=== PATIENT | male | born 1970 | race Hispanic/Latino ===

== ENCOUNTER 2020-05-27 18:36 | Inpatient (IN) | payer OTHER, SELFPAY ==
[~2020-05-27 18:36] MED LIST: Iopamidol-370 76% 500 ML 1 ML ONE
[2020-05-27] MEDS ORDERED: Ondansetron PF 4 MG/2 ML Vial ONE ×2 (18:52→22:35)
[2020-05-27] MEDS ORDERED: Morphine 4 MG/ML VIAL ONE (19:10)
[2020-05-27 19:26] LABS: INR-International Normal Ratio 0.9; PTT 34.2 sec (22.9-36.1); Prothrombin Time 12.8 sec (12.0-14.7)
[2020-05-27] MEDS ORDERED: Cefepime 2 GM VIAL ONE (19:44)
[2020-05-27 19:45] LABS: Hemoglobin 14.8 g/dL (14.0-18.0); Mean Corpuscular HGB CONC 36.8 g/dL (32.0-36.0); Mean Corpuscular Hemoglobin 29.5 pg (27.0-31.0); Mean Corpuscular Volume 80.1 fL (78.0-98.0); Mean Platelet Volume 8.2 fL (7.4-10.4); Platelet Count 217 thou/uL (130-400); White Blood Cell (WBC) Count 14.1 thou/uL (4.8-10.8)
[2020-05-27 19:48] LABS: #Basophils 0.1 thou/uL (0.0-0.2); #Eosinphils 0.1 thou/uL (0.0-0.7); #Lymphocytes 1.5 thou/uL (1.20-3.40); #Monocytes 0.7 thou/uL (0.11-0.59); #Neutrophils 11.6 thou/uL (1.40-6.50); %Basophils 0.4 % (0.0-1.0); %Eosinophils 0.9 % (0.0-10.0); %Lymphocytes 10.8 % (21.0-51.0); %Monocytes 5.3 % (0.0-10.0); %Neutrophils 82.7 % (42.0-75.0); Band 27 % (5-11); Lymphocytes 9 % (21-51); MDiff Complete? YES; Monocytes 4 % (0-10); Neutrophil 56 % (42-75); Platelet Morphology Comment Appears Adequate; Polychromasia SLIGHT = 2-3 cells (100X) (0-2/hpf); Reactive Lymphocytes 4 % (0-10)
[2020-05-27] MEDS ORDERED: Acetaminophen 500 MG TAB ONE (19:53)
[2020-05-27] MEDS ORDERED: Vancomycin 1 GM/200 ML BAG ONE (20:16)
--- NOTE | 2020-05-27 20:47 | CT ---
CT ABDOMEN AND PELVIS WITH IV CONTRAST; 05/27/20 HISTORY: Pain in the abdomen and right and left to the back. FINDINGS: There are minimal dependent changes in the lung bases. The gallbladder is distended. No calcified gal lstones are seen. There is fatty infiltration of the liver. The spleen, adrenal glands, and kidneys a re normal. There is mild peripancreatic inflammation adjacent to the head of the pancreas. The pancr eas shows normal enhancement. No free air, free fluid or lymphadenopathy is seen in the abdomen or pelvis. The small bowel loops ar e not abnormally dilated. There are postop changes of appendectomy. There is a fat containing right p araumbilical hernia and small bilateral fat containing inguinal hernia. There are degenerative change s in the spine. No aneurysmal dilatation of the abdominal aorta is seen. IMPRESSION: 1. Fatty liver. 2. Distended gallbladder. Gallbladder ultrasound would be helpful. 3. Findings are suspicious for pancreatitis. POS: OFF
[2020-05-27 21:09] LABS: Chloride 98 mmol/L (98-107); Sodium 139 mmol/L (136-145)
[2020-05-27 21:12] LABS: Carbon Dioxide 24 mmol/L (22-29)
[2020-05-27 21:13] LABS: Anion Gap 21 mmol/L (10-20); BUN (Urea Nitrogen) 18 mg/dL (8.9-20.6); Calc. Creatinine Clearance 0 mL/min (70-130)
[2020-05-27 21:14] LABS: AST (SGOT) 24 U/L (5-34); Albumin 4.4 g/dL (3.5-5.0); Alkaline Phosphatase 82 U/L (40-110); Bilirubin, Total 0.6 mg/dL (0.2-1.2); CK (CPK) 163 U/L (30-200); Calcium 8.4 mg/dL (7.8-10.44); Globulin 2.7 g/dL (2.4-3.5); Glucose 224 mg/dL (70-105); Protein, Total 7.1 g/dL (6.0-8.3)
[2020-05-27 21:15] LABS: ALT (SGPT) 29 U/L (8-55); Lipase 127 U/L (8-78)
--- NOTE | 2020-05-27 21:43 | ULT ---
GALLBLADDER ULTRASOUND: 05/27/20 HISTORY: Abdominal pain. FINDINGS: The liver demonstrates increased echogenicity consistent with fatty infiltration without focal mass o r abnormal biliary ductal dilatation. No gallstones, gallbladder wall thickening or pericholecystic f luid is seen. the common duct measures 5 mm in diameter. The pancreas is not well visualized due to o verlying bowel gas. Right kidney is normal. No free fluid is seen in Julian's pouch. IMPRESSION: 1. Fatty liver. 2. No evidence of cholelithiasis. 3. The drier unloader reported a positive sonographic [place]'s sign. If there is suspicion for acut e cholecystitis, HIDA scan should be performed. POS: OFF
[2020-05-27 22:06] LABS: Bacteria/HPF None Seen HPF (None Seen); Bilirubin Negative (Negative); Blood, Urine 1+ (Negative); Clarity Clear (Clear); Glucose, Urine (Dipstick) Greater than 1000 mg/dL (Negative); Ketone, Urine 10 mg/dL (Negative); Leukocyte Negative Leu/uL (Negative); Nitrite Negative (Negative); Protein, Urine (Dipstick) 20 mg/dL (Neg-Trace); Specific Gravity, Urine 1.048 (1.002-1.036); Squamous Epithelial 0-3 HPF (0-3); Urobilinogen Normal mg/dL (Less than 2); WBC/HPF 0-3 HPF (0-3); pH, Urine 6.5 (5.0-9.0)
[2020-05-27] MEDS ORDERED: Acetaminophen 650 MG Suppository PR PRN (23:16)
--- NOTE | 2020-05-27 23:34 | PDOC.HHP ---
Hospitalist HPI - History of Present Illness History of Present Illness: ADMISSION DATE: 05/27/2020 TIME OF ASSESSMENT: 2300 PRIMARY CARE PHYSICIAN: None CHIEF COMPLAINT: Abdominal pain HPI: This is a 49-year-old gentleman who is [place]-speaking only presenting to the emergency department with complaints of severe abdominal pain. He states yesterday evening he noted abdominal bloating but did not experience pain until after eating breakfast earlier today. At approximately noon it became severe, 10 out of 10 in severity which she describes as a diffuse pressure-like sensation. It remains intermittent throughout the day and eventually prompted him to come in and seek medical evaluation. He vomited twice, once at home and once since arriving to the ER. Denies any hematemesis and has not had any diarrhea or constipation. He was not febrile at home but noted to have an elevated temperature here in the ER. He had a normal bowel movement earlier today. ED COURSE: He had an EKG done in the emergency department that showed sinus tachycardia with a heart rate of 116. No ST changes or T wave abnormalities present. Labs showed white cell count 14.1, hemoglobin 14.8, hematocrit 40.2, platelets 217, neutrophils 82.7%, bands 27. Actiq acid 1.6, sodium 139, potassium 4, BUN 18, creatinine 0.98, GFR 81. LFTs normal and lipase 127. CK 163, troponin negative. UA showed greater than 1000 glucose, 10 ketones, 1+ blood, 11-[address] abdomen and pelvis: 1. Fatty liver. 2. Distended gallbladder. Gallbladder ultrasound would be helpful. 3. Findings are suspicious for pancreatitis. Gallbladder ultrasound: 1. Fatty liver. 2. No evidence of cholelithiasis. 3. The it network architect reported a positive sonographic [place] sign. If there is suspicion for acut e cholecystitis, HIDA scan should be performed. Patient received Zofran 4 mg x 2 for nausea/vomiting. Received 2 L of normal saline and started on antibiotics with vancomycin and cefepime. Given Tylenol 1 g for fever. PAST MEDICAL HISTORY: None PAST SURGICAL HISTORY: 1. Appendectomy 2. Foot surgery SOCIAL HISTORY: He lives with his and denies any history of tobacco use, alcohol consumption or drug use. Fully independent at baseline. FAMILY HISTORY: Noncontributory ALLERGIES: No known drug allergies CURRENT MEDICATIONS: None. - Exam General Appearance: NAD, awake alert General - other findings: VS: Temp 100.5, HR 109, BP 146/80, RR 22, O2 sat 92% on room air. Pain 4/ Eye: PERRL, anicteric sclera ENT: normocephalic atraumatic, moist mucosa Neck: supple, no lymphadenopathy Heart: RRR, normal peripheral pulses Respiratory: CTAB, no wheezes, no rales, no ronchi, normal chest expansion Gastrointestinal: soft, tender to palpation (diffuse) Extremities: no edema Skin: normal turgor, no lesions Neurological: cranial nerve grossly intact, normal sensation to touch, no weakness Musculoskeletal: normal tone, normal strength, no muscle wasting Psychiatric: normal affect, normal behavior, A&O x 3 Hospitalist Results - Labs Result Diagrams: 05/27/20 18:49 05/27/20 18:49 Lab results: WBC 14.1 thou/uL (4.8-10.8) H 05/27/20 18:49 Hgb 14.8 g/dL (14.0-18.0) 05/27/20 18:49 Hct 40.2 % (42.0-52.0) L 05/27/20 18:49 MCV 80.1 fL (78.0-98.0) 05/27/20 18:49 Plt Count 217 thou/uL (130-400) 05/27/20 18:49 Neutrophils % 82.7 % (42.0-75.0) H 05/27/20 18:49 Band Neuts % (Manual) 27 % (5-11) H 05/27/20 18:49 Sodium 139 mmol/L (136-145) 05/27/20 18:49 Potassium 4.0 mmol/L (3.5-5.1) 05/27/20 18:49 Chloride 98 mmol/L (98-107) 05/27/20 18:49 Carbon Dioxide 24 mmol/L (22-29) 05/27/20 18:49 BUN 18 mg/dL (8.9-20.6) 05/27/20 18:49 Creatinine 0.98 mg/dL (0.7-1.3) 05/27/20 18:49 Glucose 224 mg/dL (70-105) H 05/27/20 18:49 Lactic Acid 1.6 mmol/L (0.5-2.2) 05/27/20 18:49 Calcium 8.4 mg/dL (7.8-10.44) 05/27/20 18:49 Total Bilirubin 0.6 mg/dL (0.2-1.2) 05/27/20 18:49 AST 24 U/L (5-34) 05/27/20 18:49 ALT 29 U/L (8-55) 05/27/20 18:49 Alkaline Phosphatase 82 U/L (40-110) 05/27/20 18:49 Creatine Kinase 163 U/L (30-200) 05/27/20 18:49 Troponin I Less than 0.010 ng/mL (< 0.028) 05/27/20 18:49 Serum Total Protein 7.1 g/dL (6.0-8.3) 05/27/20 18:49 Albumin 4.4 g/dL (3.5-5.0) 05/27/20 18:49 Lipase 127 U/L (8-78) H 05/27/20 18:49 Urine Ketones 10 mg/dL (Negative) A 05/27/20 21:57 Urine Blood 1+ (Negative) A 05/27/20 21:57 Urine Nitrite Negative (Negative) 05/27/20 21:57 Ur Leukocyte Esterase Negative Beth/uL (Negative) 05/27/20 21:57 Urine RBC 11-20 HPF (0-3) A 05/27/20 21:57 Urine WBC 0-3 HPF (0-3) 05/27/20 21:57 Ur Squamous Epith Cells 0-3 HPF (0-3) 05/27/20 21:57 Urine Bacteria None Seen HPF (None Seen) 05/27/20 21:57 - Radiology Interpretation CT scan - abdomen Status: report reviewed by al Hospitalist H&P A/P - Problem (1) Sepsis Code(s): A41.9 - SEPSIS, UNSPECIFIED ORGANISM Status: Acute (2) Abdominal pain Code(s): R10.9 - UNSPECIFIED ABDOMINAL PAIN Status: Acute (3) Nausea & vomiting Code(s): R11.2 - NAUSEA WITH VOMITING, UNSPECIFIED Status: Acute - Plan Plan: Patient presenting with n/v and diffuse abdominal pain, worse in upper abdomen. Per ED, concern for pancreatitis, however lipase is 127. He is febrile and tachycardic with bandemia. Imaging showed ?pancreatitis on CT, while GB US showed gallbladder distention with poor visualization of pancreas. Will continue IV antibiotics Repeat LFTs in the AM including lipase Blood cultures done IV fluids Check lipid panel with AM labs NPO GI consult
[2020-05-28] MEDS ORDERED: Sodium Chloride 0.9% 1,000 ML IV SCH ×2 (00:30→08:15)
[2020-05-28] MEDS: Sodium Chloride 0.9% 1,000 ML IV SCH ×2 (00:30→11:29)
[2020-05-28] MEDS ORDERED: Vancomycin 1.5 GRAM/300 ML BAG 1.5 GM in Premix Bag 1 BAG IVPB SCH (02:00)
[2020-05-28] MEDS: Acetaminophen 325 MG TAB PO PRN ×3 (04:39→22:56)
[2020-05-28] MEDS ORDERED: Ibuprofen 200 MG TAB PO SCH (06:15)
[2020-05-28 06:21] LABS: SARS-CoV-2 PCR by NAA Not Detected (NotDetected)
[2020-05-28] MEDS ORDERED: Ondansetron ODT 4 MG TAB PO PRN (06:24)
[2020-05-28] MEDS ORDERED: Ondansetron PF 4 MG/2 ML Vial IVP SCH (06:30)
[2020-05-28 06:57] LABS: #Lymphocytes 0.7 thou/uL (1.20-3.40); %Basophils 0.1 % (0.0-1.0); %Eosinophils 0.3 % (0.0-10.0); %Monocytes 5.7 % (0.0-10.0); Hemoglobin 14.2 g/dL (14.0-18.0); Mean Corpuscular HGB CONC 36.1 g/dL (32.0-36.0); Mean Corpuscular Volume 80.4 fL (78.0-98.0); Mean Platelet Volume 8.1 fL (7.4-10.4); Platelet Count 188 thou/uL (130-400); RBC Distribution Width 13.4 % (11.5-14.5); Red Blood Cell (RBC) Count 4.88 mill/uL (4.70-6.10); White Blood Cell (WBC) Count 17.8 thou/uL (4.8-10.8)
[2020-05-28 07:06] LABS: Lactic Acid 1.4 mmol/L (0.5-2.2)
[2020-05-28 07:08] LABS: ALT (SGPT) 22 U/L (8-55); Albumin 3.8 g/dL (3.5-5.0); Alkaline Phosphatase 73 U/L (40-110); Anion Gap 24 mmol/L (10-20); BUN (Urea Nitrogen) 11 mg/dL (8.9-20.6); Bilirubin, Total 0.8 mg/dL (0.2-1.2); Calc. Creatinine Clearance 142 mL/min (70-130); Calcium 8.4 mg/dL (7.8-10.44); Carbon Dioxide 13 mmol/L (22-29); Cardiac Risk 51.8 (Less than 4.5); Chloride 95 mmol/L (98-107); Cholesterol 622 mg/dl (< 200 Desired); Globulin 5.4 g/dL (2.4-3.5); Glucose 251 mg/dL (70-105); HDL Cholesterol 12 mg/dL (>60 Neg Risk); Lipase 83 U/L (8-78); Magnesium 1.6 mg/dL (1.6-2.6); Potassium 3.3 mmol/L (3.5-5.1); Protein, Total 9.2 g/dL (6.0-8.3); Sodium 129 mmol/L (136-145)
[2020-05-28 07:16] LABS: Triglycerides 3432 mg/dL (Less than 150)
[2020-05-28 07:37] LABS: AST (SGOT) 22 U/L (5-34)
[2020-05-28] MEDS ORDERED: Cefepime 1 GM in Sodium Chloride 0.9% 100 ML IVPB SCH (08:00)
[2020-05-28] MEDS ORDERED: Dextrose 50% Abboject 50 ML SYRINGE SLOW IVP PRN ×2 (08:02→08:39)
[2020-05-28] MEDS ORDERED: Insulin Regular 300 UNITS/3 ML VIAL SC PRN (08:02)
[2020-05-28] MEDS ORDERED: Dextrose 5% in Water 1,000 ML IV PRN ×2 (08:02→08:39)
[2020-05-28] MEDS ORDERED: D5 1/2 NS w/20 mEq KCL 1,000 ML IV PRN (08:06)
[2020-05-28] MEDS ORDERED: NS 0.9% w/ 20 MEQ KCL 1,000 ML IV PRN ×2 (08:06)
[2020-05-28] MEDS ORDERED: Dextrose 5 %-0.45 % NaCl 1,000 ML IV PRN (08:06)
[2020-05-28] MEDS ORDERED: Sodium Chloride 0.9% 1,000 ML IV PRN ×4 (08:06)
--- NOTE | 2020-05-28 08:07 | RAD ---
XR Chest Pa Lat STANDARD History: Shortness of breath. Fever Comparison: Radiograph 2017 Findings: Mild perihilar and peripheral airspace opacities. No pneumothorax. No effusion. No acute os seous abnormality. Impression: Low-grade perihilar and peripheral opacities can be seen with Covid-19 pneumonia.
[2020-05-28] MEDS ORDERED: HUMULIN R 100 UNITS in Sodium Chloride 0.9% 100 ML IVPB SCH (08:15)
[2020-05-28] MEDS ORDERED: D5 0.9% NS w/ 20 mEq KCl 1,000 ML IV SCH (08:15)
[2020-05-28] MEDS ORDERED: MEROPENEM 1 GM/50 ML 1 GM in Premix Bag 1 BAG IVPB SCH (08:30)
[2020-05-28 08:46] LABS: Hemoglobin A1c 7.9 % (4.0-6.0)
[2020-05-28] MEDS ORDERED: Famotidine/PF 20 mg/2ml Vial SLOW IVP SCH (09:00)
[2020-05-28 09:02] LABS: Anion Gap 25 mmol/L (10-20); BUN (Urea Nitrogen) 10 mg/dL (8.9-20.6); Calc. Creatinine Clearance 122 mL/min (70-130); Carbon Dioxide 13 mmol/L (22-29); Chloride 97 mmol/L (98-107); Glucose 236 mg/dL (70-105); Potassium 4.2 mmol/L (3.5-5.1); Sodium 131 mmol/L (136-145)
[2020-05-28 09:14] LABS: Phosphorus 2.5 mg/dL (2.3-4.7)
[2020-05-28] MEDS: D5 1/2 NS w/20 mEq KCL 1,000 ML IV SCH ×2 (10:14→12:32)
[2020-05-28] MEDS: NPH, Human Insulin Isophane 300 UNIT/3 ML VIAL SC SCH ×2 (10:14→21:26)
[2020-05-28] MEDS: Pantoprazole 40 MG VIAL IVP SCH ×2 (10:39→21:01)
[2020-05-28 13:18] LABS: Anion Gap 19 mmol/L (10-20); BUN (Urea Nitrogen) 10 mg/dL (8.9-20.6); Calc. Creatinine Clearance 131 mL/min (70-130); Calcium 7.3 mg/dL (7.8-10.44); Carbon Dioxide 18 mmol/L (22-29); Chloride 99 mmol/L (98-107); Glucose 249 mg/dL (70-105); Lactic Acid 1.4 mmol/L (0.5-2.2); Potassium 5.4 mmol/L (3.5-5.1); Sodium 131 mmol/L (136-145)
--- NOTE | 2020-05-28 16:17 | CON ---
DATE OF CONSULTATION: 05/28/2020 REASON FOR CONSULTATION: Abdominal pain and fever. HISTORY OF PRESENT ILLNESS: A 49-year-old patient first admission, who has a history of hypertension, otherwise in usual health until Friday when he developed abdominal pain in the bandlike fashion in the epigastric, right and left upper quadrant, some nausea, and started having fever, body aches, and chills. No headaches. No sore throat, odynophagia, or dysphagia. No respiratory symptoms. No genitourinary symptoms. No diarrhea or constipation or bleeding. No joint symptoms. On arrival, his blood pressure was 140/90, is tachycardic 106, temperature 101.5, O2 saturation 98% on room air. He is tachypneic, appeared in some distress, moderate pain in the epigastric area. There is tenderness in the abdominal area in the epigastric region, left upper quadrant, right upper quadrant. Initial findings included also white cell count 14,000, hemoglobin 14, platelets 217, 82% neutrophils. Sodium 139, creatinine 0.98. Liver profile normal. Albumin 4.4. Lipase was 127. Urinalysis was 0 to 3 wbc's. SARS-CoV-2 PCR negative. Abdomen and pelvis CT with fatty liver, distended gallbladder, and possible pancreatitis with mild peripancreatic inflammatory changes adjacent to the head of the pancreas. The patient had a chest x-ray, which showed some low-grade perihilar opacities. Currently, Mr. Gonzalez is feeling a little better. He is still having pain in the upper segments of his abdomen, dry mouth. The pain cannot radiate to the left lower quadrant at this time. Remainder of 10-point review of systems is negative. PAST MEDICAL HISTORY: Hypertension and GERD. SOCIAL HISTORY: . Lives in [place]. 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 Never smoker. Does not drink. SURGICAL HISTORY: Appendectomy. ALLERGIES: NONE. MEDICATIONS: Had not been taking any medication. Right now he is on: 1. Dextrose insulin. 2. Pantoprazole. PHYSICAL EXAMINATION: VITAL SIGNS: Temperature 102.5, he is now 98.9; blood pressure 130/80; heart rate 96; respiratory rate 18; O2 saturation 96% on 1 L. SKIN: Normal. Peripheral IV access. GENERAL: He is voiding in the toilet. LYMPHATIC: No lymphadenopathy. HEENT: Ocular movements conjugate. Oral cavity dry. Quite a few teeth in place with some decay and gum disease. NECK: Supple. No jugular vein distention. LUNGS: Symmetric clear breath sounds. HEART: S1 and S2. Regular rate. No S3 or S4. ABDOMEN: Soft with [id number] tenderness in the epigastric area, right and left upper quadrants. No distention. No organomegaly or bladder distention. No ascites. EXTREMITIES: No joint inflammatory activity. No edema. Pulses 1+ in dorsalis pedis. Plantar responses are flexor. NEUROLOGIC: Moves extremities equally. Cognitive function appears to be intact. LABORATORY DATA: White cell count 17.8, hemoglobin 14, platelets 188, 90% neutrophils. Creatinine 0.97. Lactic acid 1.4. Two blood culture sets, negative thus far. Urine culture, no growth in 12 hours. ASSESSMENT: Obesity, hypertension, abdominal pain, elevated lipase, abnormalities on chest x-ray. DISCUSSION: Acute pancreatitis in association of lung abnormalities. In view of the high prevalence of SARS-CoV-2, I would keep him in isolation for that possibility despite an initial negative test. SARS-CoV has been described sometimes with pancreatitis. He eventually will need right upper quadrant ultrasound to evaluate his gallbladder. Consider repeating SARS-CoV-2 PCR in the next few days and an antibody test as well down the road. It may be too early to order an antibody test, but l will go ahead and even if it is a negative one early on, we can see the trending increase in titers over time. Job ID: [id number] MTDD
[2020-05-28] MEDS: Dextrose 5 % And 0.9 % NaCl 1,000 ML IV SCH ×2 (16:31→21:24)
[2020-05-28 17:40] LABS: Glucose 257 mg/dL (70-105)
[2020-05-28] MEDS: Insulin Regular 300 UNITS/3 ML VIAL SC PRN (17:43)
[2020-05-28 17:57] LABS: Anion Gap 14 mmol/L (10-20); BUN (Urea Nitrogen) 8 mg/dL (8.9-20.6); Calc. Creatinine Clearance 136 mL/min (70-130); Calcium 7.6 mg/dL (7.8-10.44); Carbon Dioxide 22 mmol/L (22-29); Chloride 98 mmol/L (98-107); Glucose 257 mg/dL (70-105); Potassium 4.2 mmol/L (3.5-5.1); Sodium 130 mmol/L (136-145)
[2020-05-28 18:03] LABS: SARS-CoV-2 PCR by NAA Not Detected (NotDetected)
--- NOTE | 2020-05-28 19:12 | PDOC.HOSPP ---
- Subjective Encounter Date: 05/28/20 Encounter Time: 15:30 Subjective: Patient seen and examined for acute pancreatitis. Abdominal pain improving. Feels generally weak and fatigued. Denies any nausea or vomiting. No chest pain, shortness of breath or palpitations reported. - Objective Vital Signs & Weight: Vital Signs (12 hours) Temp Pulse Resp BP BP Pulse Ox 05/28/20 17:53 99.5 F 107 H 05/28/20 16:35 100.9 F H 05/28/20 15:58 100.9 F H 113 H 20 136/76 98 05/28/20 13:20 96 05/28/20 12:08 98.9 F 96 18 134/87 98 05/28/20 10:49 96 05/28/20 08:06 99.2 F 108 H 18 136/68 96 Weight Weight 223 lb 5 oz I&O: 05/27/20 05/28/20 05/29/20 06:59 06:59 06:59 Intake Total 509 3084 Balance 509 3084 Result Diagrams: 05/28/20 06:26 05/28/20 16:40 Additional Labs: Abnormal Lab Results - Last 48 hrs 05/27/20 18:49: WBC 14.1 H, Hct 40.2 L, MCHC 36.8 H, Neutrophils % 82.7 H, Band Neuts % (Manual) 27 H, Lymphocytes % 10.8 L, Lymphocytes % (Manual) 9 L, Neutrophils # 11.6 H, Monocytes # 0.7 H 05/27/20 18:49: Anion Gap 21 H, Lipase 127 H 05/27/20 21:57: Ur Specific [place] 1.048 H, Urine Glucose (UA) Greater than 1000 A, Urine Ketones 10 A, Urine Blood 1+ A, Urine RBC 11-20 A 05/28/20 06:26: Sodium 129 L, Potassium 3.3 L, Chloride 95 L, Carbon Dioxide 13 L, Anion Gap 24 H, Serum Total Protein 9.2 H, Globulin 5.4 H, Albumin/Globulin Ratio 0.7 L, Triglycerides 3432 H, Cholesterol 622 H, Lipase 83 H 05/28/20 06:26: WBC 17.8 H, Hct 39.2 L, MCHC 36.1 H, Neutrophils % 90.0 H, Lymphocytes % 4.0 L, Neutrophils # 16.0 H, Lymphocytes # 0.7 L, Monocytes # 1.0 H 05/28/20 08:31: Hemoglobin A1c 7.9 H 05/28/20 08:31: Sodium 131 L, Chloride 97 L, Carbon Dioxide 13 L, Anion Gap 25 H 05/28/20 08:31: B-Hydroxybutyrate 0.59 H 05/28/20 12:35: Sodium 131 L, Potassium 5.4 H, Carbon Dioxide 18 L, Calcium 7.3 L 05/28/20 16:40: Sodium 130 L, BUN 8 L, Calcium 7.6 L Microbiology - Entire Visit 05/27/20 21:57 Urine voided Urine Culture - Preliminary NO GROWTH AT 12 HOURS 05/27/20 18:49 Venous blood - Left Arm Blood Culture - Preliminary Specimen has been received and culture in progress. No Growth to date. 05/27/20 19:49 Venous blood - Right Arm Blood Culture - Preliminary Specimen has been received and culture in progress. No Growth to date. Radiology Reviewed by me: Yes (CT abdomendistended gallbladder) Hospitalist ROS - Review of Systems Respiratory: denies: cough, dry, shortness of breath, hemoptysis, SOB with excertion, pleuritic pain, sputum, wheezing, other Cardiovascular: denies: chest pain, palpitations, orthopnea, paroxysmal noc. dyspnea, edema, light headedness, other - Medication Medications: Active Medications Generic Name Dose Route Start Last Admin Trade Name Freq PRN Reason Stop Dose Admin Acetaminophen 650 mg 05/27/20 23:16 05/28/20 16:35 Acetaminophen 325 Mg Tab PO 650 mg Q4H PRN Administration Headache/Fever/Mild Pain (1-3) Dextrose/Sodium Chloride 1,000 mls @ 150 mls/hr 05/28/20 14:00 05/28/20 16:31 D5 0.9% Ns IV 1,000 mls .[id number] CANDICE Administration Insulin Human NPH 10 unit 05/28/20 09:00 05/28/20 10:14 Nph, Human Insulin Isophane 300 Unit/3 Ml Vial SC 10 unit BID CANDICE Administration Insulin Human Regular 0 units 05/28/20 08:02 05/28/20 17:43 Insulin Regular 300 Units/3 Ml Vial SC 6 unit .MODERATE SLIDING SC PRN Administration Moderate Correctional Scale Pantoprazole Sodium 40 mg 05/28/20 09:00 05/28/20 10:39 Pantoprazole 40 Mg Vial IVP 40 mg Q12HR CANDICE Administration Sodium Chloride 10 ml 05/27/20 23:16 05/28/20 06:41 Flush - Normal Saline 10 Ml Syringe IVF 10 ml PRN PRN Administration Saline Flush - Exam General Appearance: ill appearing Neck: supple, no JVD Heart: RRR, no gallops, no rubs, normal peripheral pulses Respiratory: no wheezes, no rales, normal chest expansion, no tachypnea Gastrointestinal: soft, non-distended, normal bowel sounds, no guarding, no rigidity Extremities: no cyanosis, no clubbing, no edema Extremities - other findings: No calf tenderness Neurological: no new deficit Musculoskeletal: generalized weakness Psychiatric: normal affect, A&O x 3 Hosp A/P - Plan DVT proph w/SCDs Acute pancreatitis due to hypertriglyceridemia Severe sepsis suspected due to acute cholecystitis New diagnosis of diabetes mellitus type 2 with A1c of 7.9 Dehydration with hyponatremia Metabolic acidosis CKD stage II Hypertension GERD Obesity with a BMI of 36 Plan: Initial plan was to start IV insulin drip for hypertriglyceridemia. However due to lack of availability of IMCU beds there is was not possible. We will start him on NPH along with sliding scale every 4 hourly. We will start him on IV fluids with dextrose. We will add NPH. We will start meropenem. Discontinue vancomycin. Covid testing negative. Recheck triglyceride levels in a.m. Continue n.p.o. Await GI and ID input. Continue other medications as above. Dietitian consult for education.
[2020-05-28] MEDS: MEROPENEM 1 GM/50 ML 1 GM in Premix Bag 1 BAG IVPB SCH (21:00)
[2020-05-28 21:28] LABS: Glucose 211 mg/dL (70-105)
[2020-05-29 01:05] LABS: Glucose 248 mg/dL (70-105)
[2020-05-29] MEDS: MEROPENEM 1 GM/50 ML 1 GM in Premix Bag 1 BAG IVPB SCH ×3 (04:30→20:17)
[2020-05-29] MEDS: Dextrose 5 % And 0.9 % NaCl 1,000 ML IV SCH ×2 (04:30→11:13)
[2020-05-29 06:07] LABS: #Eosinphils 0.1 thou/uL (0.0-0.7); #Lymphocytes 0.9 thou/uL (1.20-3.40); #Monocytes 0.5 thou/uL (0.11-0.59); #Neutrophils 7.1 thou/uL (1.40-6.50); %Basophils 0.2 % (0.0-1.0); %Lymphocytes 10.4 % (21.0-51.0); %Monocytes 5.6 % (0.0-10.0); %Neutrophils 82.9 % (42.0-75.0); Hemoglobin 12.9 g/dL (14.0-18.0); Mean Corpuscular HGB CONC 34.8 g/dL (32.0-36.0); Mean Corpuscular Hemoglobin 27.9 pg (27.0-31.0); Mean Corpuscular Volume 80.1 fL (78.0-98.0); Mean Platelet Volume 8.1 fL (7.4-10.4); Platelet Count 146 thou/uL (130-400); RBC Distribution Width 13.2 % (11.5-14.5); Red Blood Cell (RBC) Count 4.63 mill/uL (4.70-6.10); White Blood Cell (WBC) Count 8.5 thou/uL (4.8-10.8)
--- NOTE | 2020-05-29 06:11 | CON ---
DATE OF CONSULTATION: 05/28/2020 REASON FOR CONSULT: Epigastric pain. HISTORY OF PRESENT ILLNESS: Mr. Gonzalez is a 49-year-old gentleman who is seen with regard to the epigastric pain. He reports he was feeling well until yesterday, when he began to develop epigastric pain that was fairly severe after eating chicken wings. He presented with a temperature of 100.7 and a pulse of 111 and blood pressure of 114/67. He denies any radiation of pain to the back. He has some vomiting but no hematemesis. He denies any diarrhea or melena or hematochezia. He did have some fever and body aches and chills. Denies any dysuria, frequency, or urgency. He was found to be in DKA. He was found to have leukocytosis. A CAT scan showed possibly some mild inflammation of the pancreas and distended gallbladder. COVID test was negative, but a chest x-ray performed earlier this morning apparently looks like COVID pneumonia. So he is going to be retested, he has been moved to isolation after I saw him for this consult. Other factors here then are only very mildly elevated lipase, normal liver function tests, leukocytosis, and triglycerides of over 3,000. Apparently, he has diabetes of new onset. PAST MEDICAL HISTORY: None. PAST SURGICAL HISTORY: Appendectomy and foot surgery for trauma. SOCIAL HISTORY: He lives with his . He does not smoke, drink, or use drugs. He works at a [employer]. ALLERGIES: NONE KNOWN. MEDICATIONS: At home, none. FAMILY HISTORY: Negative for colorectal cancer or liver disease. REVIEW OF SYSTEMS: Negative for rashes, myalgias, or arthralgias. Positive for polyuria and polydipsia. PRESENT MEDICATIONS: 1. Tylenol. 2. D5 normal saline 150 an hour. He has received 2 L of normal saline bolus. 3. Insulin sliding scale. 4. Protonix 40 mg. 5. Meropenem, vancomycin one dose given of each. PHYSICAL EXAMINATION: VITAL SIGNS: T-max 101.1 at 6 this morning, T-current 99.2. Pulse 108, blood pressure 134/87. GENERAL: Mr. Gonzalez is an ill-appearing man. ASSESSMENT: He states that prior to the day and a half to two days ago, he was fine, working. He denies any sick contacts. 1. He presents with what appears to be new-onset diabetes and diabetic ketoacidosis with elevated triglycerides over 3,000, mildly elevated lipase, and a CT scan showing some inflammation around the head of the pancreas. 2. Another finding is distended gallbladder. It is unclear if this is just secondary to him being ill and not eating or if this is the source of his symptoms. 3. Now, there is concern based on his x-ray and fever, he may have coronavirus. 4. With regard to his epigastric pain, this could be related to biliary tract disease, but with no gallstones that seems less likely. It could be related to mild pancreatitis, related to either diabetic ketoacidosis or hypertriglyceridemia or both, or it is even possible that he could have ulcer disease, but I think the fact that he has diabetic ketoacidosis, this is probably a new-onset diabetes, the diabetic ketoacidosis and the hypertriglyceridemia are probably related to this, and he has low-grade pancreatitis related to these two factors. RECOMMENDATIONS: 1. I would continue him on empiric antibiotics and then cover his abdomen. 2. Agree with ruling him out for COVID. 3. If he rules out for COVID, he is going to get a HIDA scan. If he does not, then I think we can observe him. 4. We would consider insulin to treat his hypertriglyceridemia, so his pancreatitis does not worsen. Job ID: [id number]
[2020-05-29 06:43] LABS: ALT (SGPT) 28 U/L (8-55); AST (SGOT) 27 U/L (5-34); Albumin 3.4 g/dL (3.5-5.0); Alkaline Phosphatase 65 U/L (40-110); Anion Gap 14 mmol/L (10-20); BUN (Urea Nitrogen) 8 mg/dL (8.9-20.6); Bilirubin, Total 0.4 mg/dL (0.2-1.2); Calc. Creatinine Clearance 147 mL/min (70-130); Calcium 7.6 mg/dL (7.8-10.44); Carbon Dioxide 25 mmol/L (22-29); Chloride 101 mmol/L (98-107); Globulin 3.4 g/dL (2.4-3.5); Glucose 225 mg/dL (70-105); Lipase 221 U/L (8-78); Phosphorus 1.3 mg/dL (2.3-4.7); Potassium 3.4 mmol/L (3.5-5.1); Protein, Total 6.8 g/dL (6.0-8.3); Sodium 137 mmol/L (136-145)
[2020-05-29 08:26] LABS: Glucose 249 mg/dL (70-105)
[2020-05-29] MEDS ORDERED: Potassium Chloride 20 MEQ TAB PO SCH (08:45)
[2020-05-29] MEDS ORDERED: Magnesium 2 GM/50 ML 2 GM in Premix Bag 1 BAG IVPB SCH (08:45)
[2020-05-29] MEDS ORDERED: PHOS-NAK 1 PKT PACK PO SCH (09:00)
--- NOTE | 2020-05-29 11:09 | NM ---
HEPATOBILIARY SCAN: HISTORY:Abdominal pain, no gallstones on ultrasound of 05/27/2020 RADIOPHARMACEUTICAL: 5.5 mCi Technetium 99m Mebrofenin injected intravenously FINDINGS: There is normal tracer extraction by the liver with normal excretion into the biliary tracts and smal l bowel loops and normal filling of the gallbladder. The calculated gallbladder ejection fraction following an oral fatty meal measures 17%. IMPRESSION:Chronic acalculous cholecystitis/gallbladder dyskinesia
[2020-05-29] MEDS: NPH, Human Insulin Isophane 300 UNIT/3 ML VIAL SC SCH ×2 (11:11→20:18)
[2020-05-29] MEDS: Saccharomyces boulardii 250 MG CAP PO SCH (11:11)
[2020-05-29] MEDS: Acetaminophen 325 MG TAB PO PRN (11:11)
[2020-05-29] MEDS: Electrolyte Replacement Protocol 1 EACH IVPB SCH (11:12)
[2020-05-29] MEDS: Pantoprazole 40 MG VIAL IVP SCH ×2 (11:13→20:18)
[2020-05-29] MEDS ORDERED: Potassium Phosphate 22 MMOL in Sodium Chloride 0.9% 250 ML 250 ML IVPB SCH (11:15)
--- NOTE | 2020-05-29 12:16 | PRG ---
DATE OF SERVICE: 05/29/2020 SUBJECTIVE: Mr. Gonzalez feels better. He has no pain. He wants to eat. He has not used any pain medicine. His HIDA scan showed ejection fraction of 17% with no reproduction of symptoms. OBJECTIVE: VITAL SIGNS: Temperature is 98, pulse 97, blood pressure 135/80. LUNGS: Clear. HEART: Regular rhythm without clicks or murmurs. ABDOMEN: Soft and nontender. LABORATORY DATA: White count is 8.5, hemoglobin 12.9, platelet count 146. Electrolytes normal. BUN and creatinine are 8 and 0.26, glucose is 225, anion gap is 14. Triglycerides down to 1395. Lipase down to 221. ASSESSMENT: 1. Pancreatitis, mild, likely related to hypertriglyceridemia related to uncontrolled diabetes which is apparently a new diagnosis. 2. Diabetic ketoacidosis. This likely also contributed to his hypertriglyceridemia, abdominal pain. 3. Distended gallbladder, but no gallstones. His HIDA scan showed decreased ejection fraction. There are no real reproducible symptoms. I do not think he needs his gallbladder our at this time. RECOMMENDATIONS: 1. I would continue to treat his diabetes aggressively. 2. I would keep him on a PPI in case he had ulcer disease. He has showed no signs of bleeding. However, advance diet as tolerated. If we can be of any further assistance, please do not hesitate to reconsult GI. Job ID: [id number]
[2020-05-29 12:34] LABS: Glucose 263 mg/dL (70-105)
[2020-05-29] MEDS: 1/2 NS w/KCL 20 mEq 1,000 ML IV SCH ×2 (16:26→20:18)
[2020-05-29] MEDS: Insulin Regular 300 UNITS/3 ML VIAL SC PRN (16:35)
--- NOTE | 2020-05-29 22:24 | PDOC.HOSPP ---
- Subjective Encounter Date: 05/29/20 Encounter Time: 14:00 Subjective: Patient seen and examined for acute pancreatitis with sepsis. Abdominal pain improving. Denies any nausea or vomiting. No fever or chills reported. - Objective Vital Signs & Weight: Vital Signs (12 hours) Temp Pulse Resp BP BP Pulse Ox 05/29/20 20:25 98.7 F 84 18 132/78 94 L 05/29/20 16:25 98.7 F 83 18 124/78 94 L 05/29/20 11:30 98.1 F 98 18 138/69 99 05/29/20 11:03 98.6 F 97 20 135/80 90 L Weight Weight 223 lb 5 oz I&O: 05/28/20 05/29/20 05/30/20 06:59 06:59 06:59 Intake Total 509 3084 Balance 509 3084 Result Diagrams: 05/29/20 05:49 05/29/20 12:08 Additional Labs: Accuchecks 05/29/20 05/28/20 16:23 08:37 POC Glucose 256 H 230 H Abnormal Lab Results - Last 48 hrs 05/28/20 06:26: Sodium 129 L, Potassium 3.3 L, Chloride 95 L, Carbon Dioxide 13 L, Anion Gap 24 H, Serum Total Protein 9.2 H, Globulin 5.4 H, Albumin/Globulin Ratio 0.7 L, Triglycerides 3432 H, Cholesterol 622 H, Lipase 83 H 05/28/20 06:26: WBC 17.8 H, Hct 39.2 L, MCHC 36.1 H, Neutrophils % 90.0 H, Lymphocytes % 4.0 L, Neutrophils # 16.0 H, Lymphocytes # 0.7 L, Monocytes # 1.0 H 05/28/20 08:31: Hemoglobin A1c 7.9 H 05/28/20 08:31: Sodium 131 L, Chloride 97 L, Carbon Dioxide 13 L, Anion Gap 25 H 05/28/20 08:31: B-Hydroxybutyrate 0.59 H 05/28/20 12:35: Sodium 131 L, Potassium 5.4 H, Carbon Dioxide 18 L, Calcium 7.3 L 05/28/20 16:40: Sodium 130 L, BUN 8 L, Calcium 7.6 L 05/29/20 05:49: Potassium 3.4 L, BUN 8 L, Calcium 7.6 L, Phosphorus 1.3 L, Albumin 3.4 L, Albumin/Globulin Ratio 1.0 L, Lipase 221 H 05/29/20 05:49: RBC 4.63 L, Hgb 12.9 L, Hct 37.1 L, Neutrophils % 82.9 H, Lymphocytes % 10.4 L, Neutrophils # 7.1 H, Lymphocytes # 0.9 L 05/29/20 05:49: Triglycerides 1395 H 05/29/20 05:49: C-Reactive Protein 24.80 H Microbiology - Entire Visit 05/27/20 21:57 Urine voided Urine Culture - Final NO GROWTH AT 36 HOURS 05/27/20 18:49 Venous blood - Left Arm Blood Culture - Preliminary NO GROWTH AT 48 HOURS 05/27/20 19:49 Venous blood - Right Arm Blood Culture - Preliminary NO GROWTH AT 48 HOURS Radiology Reviewed by me: Yes (AMALIA morales) Hospitalist ROS - Review of Systems Respiratory: denies: cough, dry, shortness of breath, hemoptysis, SOB with excertion, pleuritic pain, sputum, wheezing, other Cardiovascular: denies: chest pain, palpitations, orthopnea, paroxysmal noc. dyspnea, edema, light headedness, other - Medication Medications: Active Medications Generic Name Dose Route Start Last Admin Trade Name Freq PRN Reason Stop Dose Admin Acetaminophen 650 mg 05/27/20 23:16 05/29/20 11:11 Acetaminophen 325 Mg Tab PO 650 mg Q4H PRN Administration Headache/Fever/Mild Pain (1-3) Meropenem 1 gm/ Device 50 mls @ 100 mls/hr 05/28/20 20:00 05/29/20 20:17 IVPB 50 mls 0400,1200,2000 CANDICE Administration Potassium Chloride/Sodium Chloride 1,000 mls @ 100 mls/hr 05/29/20 15:30 05/29/20 20:18 1/2 Ns W/Kcl 20 Meq IV 1,000 mls .Q10H CANDICE Administration Insulin Human NPH 10 unit 05/28/20 09:00 05/29/20 20:18 Nph, Human Insulin Isophane 300 Unit/3 Ml Vial SC 10 unit BID CANDICE Administration Insulin Human Regular 0 units 05/28/20 08:02 05/29/20 16:35 Insulin Regular 300 Units/3 Ml Vial SC 6 unit .MODERATE SLIDING SC PRN Administration Moderate Correctional Scale Insulin Human Regular 0 units 05/28/20 08:02 05/29/20 20:24 Insulin Regular 300 Units/3 Ml Vial SC 2 units .BEDTIME SLIDING SC PRN Administration Bedtime Correctional Scale Miscellaneous Medication 1 each 05/29/20 08:00 05/29/20 11:12 Electrolyte Replacement Protocol 1 Each IVPB 1 each 0800 CANDICE Administration Pantoprazole Sodium 40 mg 05/28/20 09:00 05/29/20 20:18 Pantoprazole 40 Mg Vial IVP 40 mg Q12HR CANDICE Administration Saccharomyces Boulardii 250 mg 05/29/20 09:00 05/29/20 11:11 Saccharomyces Boulardii 250 Mg Cap PO 250 mg DAILY CANDICE Administration Sodium Chloride 10 ml 05/27/20 23:16 05/28/20 06:41 Flush - Normal Saline 10 Ml Syringe IVF 10 ml PRN PRN Administration Saline Flush - Exam General Appearance: awake alert Neck: supple, symmetric, no JVD, no thyromegaly Heart: no gallops, no rubs, normal peripheral pulses Respiratory: no wheezes, no rales, no ronchi, normal chest expansion Gastrointestinal: soft, non-tender, non-distended, normal bowel sounds, no guarding Extremities: no cyanosis, no clubbing, no edema Extremities - other findings: No calf tenderness Skin: normal turgor Musculoskeletal: normal tone, normal strength, no muscle wasting, generalized weakness Psychiatric: normal affect, A&O x 3 Hosp A/P - Plan DVT proph w/SCDs Acute pancreatitis due to hypertriglyceridemia Severe sepsis New diagnosis of diabetes mellitus type 2 with Diabetic ketoacidosisPOA Dehydration with hyponatremia Hypokalemia/hypomagnesemia/hypophosphatemia Gallbladder dyskinesia/chronic acalculous cholecystitis Metabolic acidosis CKD stage II Hypertension GERD Obesity with a BMI of 36 Abnormal HIDA scan Plan: Symptomatically patient is improving. He has been afebrile. WBC count normalized. Will replace magnesium, potassium and phosphorus. Triglyceride level improving. Patient has been started on diabetic diet. Will discontinue IV fluid with dextrose. Will start him on half normal saline with 20 mEq potassium. Continue IV PPIs. Continue NPH. A.m. labs. No need for surgical intervention for gallbladder Dyskinesia at this time per GI. Continue IV antibiotics. 05/28 Initial plan was to start IV insulin drip for hypertriglyceridemia. However due to lack of availability of IMCU beds there is was not possible. We will start him on NPH along with sliding scale every 4 hourly. We will start him on IV fluids with dextrose. We will add NPH. We will start meropenem. Discontinue vancomycin. Covid testing negative. Recheck triglyceride levels in a.m. Continue n.p.o. Await GI and ID input. Continue other medications as above. Dietitian consult for education.
[2020-05-30 01:04] VITALS: BMI 35.5
[2020-05-30] MEDS: MEROPENEM 1 GM/50 ML 1 GM in Premix Bag 1 BAG IVPB SCH ×2 (03:15→12:22)
[2020-05-30] MEDS: Insulin Regular 300 UNITS/3 ML VIAL SC PRN ×2 (05:34→16:59)
[2020-05-30 06:53] LABS: #Eosinphils 0.2 thou/uL (0.0-0.7); #Lymphocytes 1.6 thou/uL (1.20-3.40); #Monocytes 0.5 thou/uL (0.11-0.59); #Neutrophils 3.9 thou/uL (1.40-6.50); %Basophils 0.8 % (0.0-1.0); %Eosinophils 2.6 % (0.0-10.0); %Lymphocytes 26.2 % (21.0-51.0); %Monocytes 7.7 % (0.0-10.0); %Neutrophils 62.8 % (42.0-75.0); Hemoglobin 13.3 g/dL (14.0-18.0); Mean Corpuscular HGB CONC 33.3 g/dL (32.0-36.0); Mean Corpuscular Hemoglobin 27.5 pg (27.0-31.0); Mean Corpuscular Volume 82.5 fL (78.0-98.0); Mean Platelet Volume 8.4 fL (7.4-10.4); Platelet Count 153 thou/uL (130-400); RBC Distribution Width 13.5 % (11.5-14.5); Red Blood Cell (RBC) Count 4.85 mill/uL (4.70-6.10); White Blood Cell (WBC) Count 6.1 thou/uL (4.8-10.8)
[2020-05-30 07:15] LABS: ALT (SGPT) 31 U/L (8-55); AST (SGOT) 28 U/L (5-34); Albumin 3.5 g/dL (3.5-5.0); Alkaline Phosphatase 58 U/L (40-110); Anion Gap 16 mmol/L (10-20); BUN (Urea Nitrogen) 11 mg/dL (8.9-20.6); Bilirubin, Total 0.3 mg/dL (0.2-1.2); Calc. Creatinine Clearance 148 mL/min (70-130); Calcium 8.2 mg/dL (7.8-10.44); Carbon Dioxide 22 mmol/L (22-29); Chloride 102 mmol/L (98-107); Globulin 3.9 g/dL (2.4-3.5); Glucose 144 mg/dL (70-105); Magnesium 2.3 mg/dL (1.6-2.6); Phosphorus 1.6 mg/dL (2.3-4.7); Potassium 3.5 mmol/L (3.5-5.1); Protein, Total 7.4 g/dL (6.0-8.3); Sodium 136 mmol/L (136-145)
[2020-05-30] MEDS ORDERED: Potassium Phosphate 15 MMOL in Sodium Chloride 0.9% 100 ML IVPB SCH (07:30)
[2020-05-30] MEDS: NPH, Human Insulin Isophane 300 UNIT/3 ML VIAL SC SCH (07:55)
[2020-05-30] MEDS: Saccharomyces boulardii 250 MG CAP PO SCH (07:55)
[2020-05-30] MEDS: Pantoprazole 40 MG VIAL IVP SCH (07:55)
[2020-05-30] MEDS: Electrolyte Replacement Protocol 1 EACH IVPB SCH (07:57)
[2020-05-30] MEDS: 1/2 NS w/KCL 20 mEq 1,000 ML IV SCH (12:22)
--- NOTE | 2020-05-30 17:16 | PRG ---
DATE OF SERVICE: 05/30/2020 SUBJECTIVE: Feeling back to normal. No pain. No respiratory symptoms. No fever. Eating, having bowel movements normally. OBJECTIVE: VITAL SIGNS: O2 sats 98% on room air. ABDOMEN: No abdominal tenderness. LUNGS: Clear. LABORATORY DATA: White cell count 6.1. MEDICATIONS: He is currently on meropenem. ASSESSMENT AND DISCUSSION: Abdominal pain, obesity, hypertension, and lipase elevation, so right now his symptoms have improved. HIDA scan did not show obstruction, but he did have a low ejection fraction. Dr. Cleary saw the patient yesterday and recommended proton pump inhibitor and proper diabetes type 2 diet. At this point, he is ready to go home off antimicrobial therapy and I think we can in terms of the question regarding COVID, I think that is less likely. He has had 2 negative PCRs, so we will blame it on the pancreatitis. Job ID: [id number]
--- NOTE | 2020-05-30 18:02 | PDOC.DS.DS ---
Provider - Provider Date of Admission: 05/28/20 08:00 Date of Discharge: 05/30/20 Admitting Provider: Osbaldo Reinoso MD Consultations: Gastroentrology, Infectious Disease Primary Care Physician: Unknown Course - Hospital Course Hospital Course: Patient is a 49-year-old male with no past medical history presented to the emergency room or 05/27 with abdominal discomfort which was 10/10, diffuse along with nausea and vomiting. There was no fever reported. Please refer to the history and physical for further details. The patient was admitted to the hospital with a diagnosis of acute pancreatitis. His lipase on admission was 127. Next morning he was found to have triglycerides of 3432. Due to lack of intensive care unit beds he was not s tarted on insulin drip. He was also and starvation ketosis with sodium bicarbonate of 13 and anion gap of 24. His ketones were 0.59. He was placed on broad-spectrum antibiotics that has been transitioned to oral. He was evaluated by gastroenterology as well as infectious disease. His CRP was 24.8 CT scan of the abdomen and pelvis on admission showed fatty liver with distended gallbladder with findings consistent with pancreatitis. Right upper quadrant ultrasound showed fatty liver with positive sonographic Tena's sign. He underwent HIDA scan that showed biliary dyskinesia with ejection fraction of 17% with chronic acalculous cholecystitis. Antibiotics will be transitioned to oral. Covid testing x2 have been negative. He was advised to follow-up with gastroenterology as outpatient for possible consideration of cholecystectomy. His electrolytes are significantly improved. Repeat electrolyte check after 1 week is recommended primary care physician advised to follow. He has been cleared by consultants for discharge. Patient was also diagnosed with diabetes mellitus type 2. He was placed on NPH that has been transitioned to glipizide with Metformin. He was extensively counseled on diabetes mellitus type 2. Final diagnosis: Acute pancreatitis due to hypertriglyceridemia Severe sepsis New diagnosis of diabetes mellitus type 2 with Diabetic ketoacidosis Dehydration with hyponatremia Hypokalemia/hypomagnesemia/hypophosphatemia Gallbladder dyskinesia/chronic acalculous cholecystitis Metabolic acidosis CKD stage II Hypertension GERD Obesity with a BMI of 36 Abnormal HIDA scan Time coordinating the discharge of this patient was 35 minutes. Resuscitation Status: 05/27/20 23:16 Resuscitation Status Routine Co-Sign Provider: Resuscitation Status: FULL: Full Resuscitation - Labs Lab Results: 05/30/20 06:20 05/30/20 06:20 Abnormal Lab Results - Last 48 hrs 05/28/20 16:40: Sodium 130 L, BUN 8 L, Calcium 7.6 L 05/29/20 05:49: Potassium 3.4 L, BUN 8 L, Calcium 7.6 L, Phosphorus 1.3 L, Albumin 3.4 L, Albumin/Globulin Ratio 1.0 L, Lipase 221 H 05/29/20 05:49: RBC 4.63 L, Hgb 12.9 L, Hct 37.1 L, Neutrophils % 82.9 H, Lymphocytes % 10.4 L, Neutrophils # 7.1 H, Lymphocytes # 0.9 L 05/29/20 05:49: Triglycerides 1395 H 05/29/20 05:49: C-Reactive Protein 24.80 H 05/30/20 06:20: Phosphorus 1.6 L, Globulin 3.9 H, Albumin/Globulin Ratio 0.9 L 05/30/20 06:20: Hgb 13.3 L, Hct 40.0 L Microbiology - Entire Visit 05/27/20 21:57 Urine voided Urine Culture - Final NO GROWTH AT 36 HOURS 05/27/20 18:49 Venous blood - Left Arm Blood Culture - Preliminary NO GROWTH AT 48 HOURS 05/27/20 19:49 Venous blood - Right Arm Blood Culture - Preliminary NO GROWTH AT 48 HOURS - Physical Exam Vitals: Vital Signs (12 hours) Temp Pulse Resp BP Pulse Ox 05/30/20 16:00 98.2 F 82 20 98 05/30/20 08:00 98.5 F 77 99 H 114/77 18 L Weight Weight 220 lb Physical Exam: The patient was seen and examined on the day of discharge. Plan - Discharge Medications Prescriptions: glipiZIDE 5 mg PO DAILY-AC #30 tablet Levofloxacin [Levaquin] 500 mg PO DAILY #5 tab metFORMIN HCl 500 mg PO BID-WM #60 tab Home Medications: Medication Instructions Recorded Confirmed Type Levofloxacin [Levaquin] 500 mg PO DAILY #5 tab 05/30/20 Rx glipiZIDE 5 mg PO DAILY-AC #30 tablet 05/30/20 Rx metFORMIN HCl 500 mg PO BID-WM #60 tab 05/30/20 Rx Allergies: No Known Drug Allergies Allergy (Verified 05/28/20 01:32) - Follow up Plan Referrals: [facility] [MD Not on Staff] - 7 Days Dharmesh Cleary MD [Active] - ( NEEDED) Marcus Durán MD [Active] - ( NEEDED) Disposition: HOME Quality - Care Measures CORE MEASURES:: N/A
[2020-05-30 18:08] VITALS: BP 130/82; TEMP 98
--- NOTE | 2020-06-17 19:06 | EKG ---
Test Reason : Blood Pressure : / mmHG Vent. Rate : 116 BPM Atrial Rate : 116 BPM P-R Int : 152 ms QRS Dur : 088 ms QT Int : 302 ms P-R-T Axes : 020 -11 014 degrees QTc Int : 419 ms Sinus tachycardia Otherwise normal ECG Confirmed by AD REDMAN DO ([id number]), design editor KELSEA CERRATO ([id number]) on 06/17/2020 7:06:10 PM Referred By: Confirmed By:AD REDMAN DO
== END 2020-05-30 18:32 | disposition home or self-care (01) | DRG 871 ==
LOC: ERS 18:36 → ONC 22:16 → OBSVTOIN 05-28 08:00 → T4-B 05-28 12:20
PROVIDERS: ADMIT Student in an Organized Health Care Education/Training Program; ATTEND Internal Medicine
DX: A41.9 Sepsis, unspecified organism (principal); K85.90 Acute pancreatitis without necrosis or infection, unspecified; E11.10 Type 2 diabetes mellitus with ketoacidosis without coma; K81.0 Acute cholecystitis; E87.1 Hypo-osmolality and hyponatremia; K21.9 Gastro-esophageal reflux disease without esophagitis; Z20.822 Contact with and (suspected) exposure to COVID-19; E66.9 Obesity, unspecified; N18.2 Chronic kidney disease, stage 2 (mild); I12.9 Hypertensive chronic kidney disease with stage 1 through stage 4 chronic kidney disease, or unspecified chronic kidney disease; R65.20 Severe sepsis without septic shock; E78.1 Pure hyperglyceridemia; E11.22 Type 2 diabetes mellitus with diabetic chronic kidney disease; Z90.49 Acquired absence of other specified parts of digestive tract; Z68.35 Body mass index [BMI] 35.0-35.9, adult; E86.0 Dehydration; E87.6 Hypokalemia; E83.42 Hypomagnesemia; E83.39 Other disorders of phosphorus metabolism; K82.8 Other specified diseases of gallbladder; K81.1 Chronic cholecystitis
CPT/HCPCS: 36415; 36416; 71046; 74177; 76705; 78227; 80053; 80061; 81003; 81015; 82010; 82550; 83036; 83605; 83690; 83735; 84100; 84478; 84484; 85025; 85610; 85730; 86140; 87040; 87086; 87635; 93005; 94760; 96365; 96366; 96367; 96375; 96376; A9537; C9113; G0378; J0692; J1815; J2185; J2270; J2405; J3370; J3475; J3480; J3490; J7050; Q9967; U0003; U0005